=== PATIENT | male | born 1950 | race Caucasian/White ===

== ENCOUNTER 2017-01-16 21:32 | Inpatient (IN) | payer MEDICARE ==
[~2017-01-16 21:32] MED LIST: ALBUTEROL17 GM INH; AMBIEN10 MG PO; CODEINE PO; DUONEB; LEVAQUIN500 MG PO; LIDOCAINE; REQUIP1 MG PO; SPIRIVA18 MCG IH; TYLENOL W/CODEI1 TA PO; ZOFRAN4 MG PO
[2017-01-16] MEDS ORDERED: [UNRECOGNIZED DRUG - REMARK] (21:44)
[2017-01-16 22:52] LABS: BASO % 0.2 % (0-2); HCT-HEMATOCRIT 38.6 % (36.0-53.5); HGB-HEMOGLOBIN 11.8 gm/dl (13.5-17.0); LYMPH % 7.7 % (20-45); LYMPH ABSOLUTE COUNT 0.3 tho/cmm (0.8-4.5); MCH (MEAN CORPUSCULAR HGB) 31.1 pg (28.0-32.0); MCHC MEAN CORPUSCULAR HGB CONC 30.6 % (32.0-36.0); MCV (MEAN CELL VOLUME) 101.6 fl (82.0-96.0); MONO % 7.7 % (0-12); MONOCYTE ABSOLUTE COUNT 0.3 tho/cmm (0.0-1.2); NEUTROPHIL ABSOLUTE COUNT 3.4 tho/cmm (1.6-8.0); NEUTROPHIL-AUTOMATED 3.4 tho/cmm (1.6-8.0); NEUTROPHILS % 84.4 % (40-80); PLATELET COUNT 172 tho/cmm (150-450); RED CELL DISTRIBUTION WIDTH 14.9 % (12.4-16.4)
[2017-01-16 22:57] LABS: ALB/GLOB RATIO 0.8 (0.8-2.0); ALBUMIN 3.1 g/dl (3.5-5.0); ALCOHOL (ETOH) <10 mg/dl (<10); ALKALINE PHOSPHATASE 64 U/L (33-138); ALT/SGPT 22 U/L (12-78); AST/SGOT 25 U/L (10-40); BILIRUBIN,TOTAL 0.2 mg/dl (0.0-1.5); BLOOD UREA NITROGEN 12 mg/dl (6-24); CALCIUM 8.4 mg/dl (8.5-10.5); CHLORIDE 91 mmol/l (96-110); CREATININE 0.52 mg/dl (0.60-1.30); GLUCOSE 155 mg/dL (70-110); MAGNESIUM 1.9 mg/dl (1.3-2.6); POTASSIUM 4.1 mmol/L (3.7-5.1); SODIUM 138 mmol/L (135-145); eGFR VALUE FOR BLACK >90 mL/Min
[2017-01-16 23:01] LABS: ARTERIAL BLD GAS O2 SATURATION 99 % (95-98); ARTERIAL PO2 127 mmHg (70-100); BICARBONATE 41 mmol/L (21-28); BLOOD GAS BASE EXCESS 13 mM/L (-/+3); PH 7.35 Units (7.35-7.45)
[2017-01-16 23:01] LABS: ANION GAP 8 mmol/L (0-20); CARBON DIOXIDE-VENOUS 43 mmol/L (22-32); TSH-THYROID STIMULATING HORM. 0.28 uIU/ml (0.40-3.80)
[2017-01-16 23:08] LABS: ARTERIAL BLOOD GAS PCO2 77 mmHg (32-45)
[2017-01-16 23:09] LABS: ABG CO2 ARTERIAL 43 mmol/L (21-27)
[2017-01-17 04:07] LABS: ACETAMINOPHEN LEVEL 3.7 ug/ml (10-30); CKMB 3.1 ng/ml (<3.6)
[2017-01-17 04:09] LABS: ARTERIAL BLD GAS O2 SATURATION 93 % (95-98); BICARBONATE 40 mmol/L (21-28); BLOOD GAS BASE EXCESS 10 mM/L (-/+3); PH 7.27 Units (7.35-7.45)
[2017-01-17 04:10] LABS: ARTERIAL PO2 67 mmHg (70-100)
[2017-01-17 04:12] LABS: ARTERIAL BLOOD GAS PCO2 91 mmHg (32-45)
[2017-01-17 04:13] LABS: ABG CO2 ARTERIAL 43 mmol/L (21-27)
[2017-01-17 04:16] LABS: CREATINE PHOSPHOKINASE (CPK) 70 U/L (35-232); SALICYLATE <2.71 mg/dl (2.8-20)
[2017-01-17 05:04] LABS: BASO % 0.3 % (0-2); HCT-HEMATOCRIT 35.5 % (36.0-53.5); HGB-HEMOGLOBIN 10.8 gm/dl (13.5-17.0); LYMPH % 3.8 % (20-45); LYMPH ABSOLUTE COUNT 0.1 tho/cmm (0.8-4.5); MCH (MEAN CORPUSCULAR HGB) 30.5 pg (28.0-32.0); MCHC MEAN CORPUSCULAR HGB CONC 30.4 % (32.0-36.0); MCV (MEAN CELL VOLUME) 100.3 fl (82.0-96.0); MEAN PLATELET VOLUME 10.2 cmc (9.4-12.4); MONO % 1.9 % (0-12); MONOCYTE ABSOLUTE COUNT 0.1 tho/cmm (0.0-1.2); NEUTROPHIL ABSOLUTE COUNT 2.9 tho/cmm (1.6-8.0); NEUTROPHIL-AUTOMATED 2.9 tho/cmm (1.6-8.0); PLATELET COUNT 165 tho/cmm (150-450); RED BLOOD COUNT 3.54 mil/cmm (4.40-5.70); RED CELL DISTRIBUTION WIDTH 14.6 % (12.4-16.4); WHITE BLOOD COUNT 3.1 tho/cmm (4.0-10.0)
[2017-01-17 05:08] LABS: PROTHROMBIN TIME 11.4 SECONDS (9.0-13.6)
[2017-01-17 05:22] LABS: ALB/GLOB RATIO 0.9 (0.8-2.0); ALBUMIN 2.7 g/dl (3.5-5.0); ALKALINE PHOSPHATASE 52 U/L (33-138); ALT/SGPT 21 U/L (12-78); ANION GAP 8 mmol/L (0-20); AST/SGOT 21 U/L (10-40); BILIRUBIN,TOTAL 0.2 mg/dl (0.0-1.5); BLOOD UREA NITROGEN 10 mg/dl (6-24); CARBON DIOXIDE-VENOUS 40 mmol/L (22-32); CHLORIDE 95 mmol/l (96-110); CREATININE 0.33 mg/dl (0.60-1.30); GLUCOSE 148 mg/dL (70-110); POTASSIUM 4.5 mmol/L (3.7-5.1); SODIUM 138 mmol/L (135-145); eGFR VALUE FOR BLACK >90 mL/Min
[2017-01-17 05:36] LABS: ARTERIAL BLD GAS O2 SATURATION 98 % (95-98); BICARBONATE 40 mmol/L (21-28); BLOOD GAS BASE EXCESS 11 mM/L (-/+3); PH 7.26 Units (7.35-7.45)
[2017-01-17 05:38] LABS: ARTERIAL PO2 110 mmHg (70-100)
[2017-01-17 05:40] LABS: ABG CO2 ARTERIAL 43 mmol/L (21-27); ARTERIAL BLOOD GAS PCO2 93 mmHg (32-45)
[2017-01-17 05:53] LABS: PROCALCITONIN <0.05 ng/ml (0.05-0.09)
[2017-01-17 06:01] LABS: OSMOLALITY 287 mOsm/kg (275-295)
[2017-01-17 07:02] LABS: URINE BILIRUBIN NEGATIVE (NEG); URINE BLOOD MODERATE (NEG); URINE GLUCOSE (UA) NEGATIVE (NEG); URINE KETONE NEGATIVE (NEG); URINE LEUKOCYTE ESTERASE NEGATIVE (NEG); URINE NITRITE NEGATIVE (NEG); URINE PROTEIN SMALL (NEG)
[2017-01-17 07:06] LABS: URINE APPEARANCE CLEAR; URINE COLOR YELLOW
[2017-01-17 07:13] LABS: URINE BACTERIA 1+; URINE RBC 0-3 /[HPF] (0-5); URINE WBC 0 /[HPF] (0-5)
[2017-01-17 08:48] LABS: ARTERIAL BLD GAS O2 SATURATION 93 % (95-98); BICARBONATE 40 mmol/L (21-28); BLOOD GAS BASE EXCESS 12 mM/L (-/+3); PH 7.31 Units (7.35-7.45)
[2017-01-17 08:49] LABS: ARTERIAL PO2 68 mmHg (70-100)
[2017-01-17 08:51] LABS: ABG CO2 ARTERIAL 43 mmol/L (21-27); ARTERIAL BLOOD GAS PCO2 83 mmHg (32-45)
[2017-01-17 14:14] LABS: ARTERIAL BLD GAS O2 SATURATION 98 % (95-98); ARTERIAL BLOOD GAS PCO2 66 mmHg (32-45); ARTERIAL PO2 91 mmHg (70-100); BICARBONATE 39 mmol/L (21-28); BLOOD GAS BASE EXCESS 12 mM/L (-/+3); PH 7.39 Units (7.35-7.45)
[2017-01-17 14:15] LABS: ABG CO2 ARTERIAL 41 mmol/L (21-27)
[2017-01-18 04:24] LABS: ARTERIAL BLD GAS O2 SATURATION 95 % (95-98); ARTERIAL BLOOD GAS PCO2 67 mmHg (32-45); BICARBONATE 40 mmol/L (21-28); BLOOD GAS BASE EXCESS 13 mM/L (-/+3); PH 7.39 Units (7.35-7.45)
[2017-01-18 04:28] LABS: ARTERIAL PO2 70 mmHg (70-100)
[2017-01-18 04:30] LABS: ABG CO2 ARTERIAL 42 mmol/L (21-27)
[2017-01-18 15:11] LABS: ARTERIAL BLD GAS O2 SATURATION 95 % (95-98); ARTERIAL BLOOD GAS PCO2 56 mmHg (32-45); ARTERIAL PO2 67 mmHg (70-100); BICARBONATE 39 mmol/L (21-28); BLOOD GAS BASE EXCESS 13 mM/L (-/+3); PH 7.46 Units (7.35-7.45)
[2017-01-18 15:12] LABS: ABG CO2 ARTERIAL 41 mmol/L (21-27)
[2017-01-18 15:34] LABS: BASO % 0.2 % (0-2); HCT-HEMATOCRIT 30.3 % (36.0-53.5); HGB-HEMOGLOBIN 9.5 gm/dl (13.5-17.0); IMMATURE GRANULOCYTES ABSOLUTE 0.01 tho/cmm (0-0.03); IMMATURE GRANULOCYTES PERCENT 0.2 % (0-0.3); LYMPH % 4.5 % (20-45); LYMPH ABSOLUTE COUNT 0.3 tho/cmm (0.8-4.5); MCH (MEAN CORPUSCULAR HGB) 30.4 pg (28.0-32.0); MCHC MEAN CORPUSCULAR HGB CONC 31.4 % (32.0-36.0); MCV (MEAN CELL VOLUME) 96.8 fl (82.0-96.0); MEAN PLATELET VOLUME 9.7 cmc (9.4-12.4); MONO % 5.4 % (0-12); MONOCYTE ABSOLUTE COUNT 0.4 tho/cmm (0.0-1.2); NEUTROPHIL ABSOLUTE COUNT 5.8 tho/cmm (1.6-8.0); NEUTROPHIL-AUTOMATED 5.8 tho/cmm (1.6-8.0); NEUTROPHILS % 89.7 % (40-80); PLATELET COUNT 147 tho/cmm (150-450); RED BLOOD COUNT 3.13 mil/cmm (4.40-5.70); RED CELL DISTRIBUTION WIDTH 15.2 % (12.4-16.4)
[2017-01-18 15:49] LABS: WHITE BLOOD COUNT 6.5 tho/cmm (4.0-10.0)
[2017-01-18 15:52] LABS: ANION GAP 7 mmol/L (0-20); BLOOD UREA NITROGEN 12 mg/dl (6-24); CALCIUM 8.1 mg/dl (8.5-10.5); CARBON DIOXIDE-VENOUS 39 mmol/L (22-32); CHLORIDE 101 mmol/l (96-110); CREATININE 0.33 mg/dl (0.60-1.30); GLUCOSE 181 mg/dL (70-110); POTASSIUM 3.8 mmol/L (3.7-5.1); SODIUM 143 mmol/L (135-145); eGFR VALUE FOR BLACK >90 mL/Min
[2017-01-19 04:56] LABS: ARTERIAL BLD GAS O2 SATURATION 94 % (95-98); ARTERIAL PO2 70 mmHg (70-100); BICARBONATE 39 mmol/L (21-28); BLOOD GAS BASE EXCESS 12 mM/L (-/+3); PH 7.36 Units (7.35-7.45)
[2017-01-19 04:58] LABS: ARTERIAL BLOOD GAS PCO2 72 mmHg (32-45)
[2017-01-19 04:59] LABS: ABG CO2 ARTERIAL 41 mmol/L (21-27)
[2017-01-19 05:20] LABS: BASO % 0.1 % (0-2); HCT-HEMATOCRIT 31.4 % (36.0-53.5); HGB-HEMOGLOBIN 9.8 gm/dl (13.5-17.0); IMMATURE GRANULOCYTES ABSOLUTE 0.01 tho/cmm (0-0.03); IMMATURE GRANULOCYTES PERCENT 0.1 % (0-0.3); LYMPH % 3.6 % (20-45); LYMPH ABSOLUTE COUNT 0.3 tho/cmm (0.8-4.5); MCH (MEAN CORPUSCULAR HGB) 30.4 pg (28.0-32.0); MCHC MEAN CORPUSCULAR HGB CONC 31.2 % (32.0-36.0); MCV (MEAN CELL VOLUME) 97.5 fl (82.0-96.0); MEAN PLATELET VOLUME 10.3 cmc (9.4-12.4); MONO % 6.1 % (0-12); MONOCYTE ABSOLUTE COUNT 0.5 tho/cmm (0.0-1.2); NEUTROPHILS % 90.1 % (40-80); PLATELET COUNT 163 tho/cmm (150-450); RED BLOOD COUNT 3.22 mil/cmm (4.40-5.70); RED CELL DISTRIBUTION WIDTH 15.3 % (12.4-16.4); WHITE BLOOD COUNT 7.7 tho/cmm (4.0-10.0)
[2017-01-19 05:39] LABS: ANION GAP 6 mmol/L (0-20); BLOOD UREA NITROGEN 9 mg/dl (6-24); CARBON DIOXIDE-VENOUS 39 mmol/L (22-32); CHLORIDE 103 mmol/l (96-110); CREATININE 0.37 mg/dl (0.60-1.30); GLUCOSE 195 mg/dL (70-110); POTASSIUM 3.9 mmol/L (3.7-5.1); SODIUM 144 mmol/L (135-145); TRIGLYCERIDES 67 mg/dl (<149); eGFR VALUE FOR BLACK >90 mL/Min
[2017-01-19 15:55] LABS: ABG CO2 ARTERIAL 40 mmol/L (21-27); ARTERIAL BLD GAS O2 SATURATION 96 % (95-98); ARTERIAL BLOOD GAS PCO2 69 mmHg (32-45); ARTERIAL PO2 82 mmHg (70-100); BICARBONATE 38 mmol/L (21-28); BLOOD GAS BASE EXCESS 10 mM/L (-/+3); PH 7.36 Units (7.35-7.45)
[2017-01-20 04:57] LABS: BASO % 0.1 % (0-2); HCT-HEMATOCRIT 37.5 % (36.0-53.5); HGB-HEMOGLOBIN 11.7 gm/dl (13.5-17.0); IMMATURE GRANULOCYTES ABSOLUTE 0.01 tho/cmm (0-0.03); IMMATURE GRANULOCYTES PERCENT 0.1 % (0-0.3); LYMPH % 5.6 % (20-45); LYMPH ABSOLUTE COUNT 0.5 tho/cmm (0.8-4.5); MCH (MEAN CORPUSCULAR HGB) 30.4 pg (28.0-32.0); MCHC MEAN CORPUSCULAR HGB CONC 31.2 % (32.0-36.0); MCV (MEAN CELL VOLUME) 97.4 fl (82.0-96.0); MONO % 3.8 % (0-12); MONOCYTE ABSOLUTE COUNT 0.3 tho/cmm (0.0-1.2); NEUTROPHIL ABSOLUTE COUNT 7.8 tho/cmm (1.6-8.0); NEUTROPHIL-AUTOMATED 7.8 tho/cmm (1.6-8.0); NEUTROPHILS % 90.4 % (40-80); PLATELET COUNT 179 tho/cmm (150-450); RED BLOOD COUNT 3.85 mil/cmm (4.40-5.70); RED CELL DISTRIBUTION WIDTH 15.1 % (12.4-16.4); WHITE BLOOD COUNT 8.6 tho/cmm (4.0-10.0)
[2017-01-20 05:11] LABS: ANION GAP 7 mmol/L (0-20); BLOOD UREA NITROGEN 14 mg/dl (6-24); CALCIUM 8.1 mg/dl (8.5-10.5); CARBON DIOXIDE-VENOUS 38 mmol/L (22-32); CHLORIDE 103 mmol/l (96-110); CREATININE 0.43 mg/dl (0.60-1.30); GLUCOSE 196 mg/dL (70-110); POTASSIUM 4.2 mmol/L (3.7-5.1); SODIUM 144 mmol/L (135-145); eGFR VALUE FOR BLACK >90 mL/Min
[2017-01-20 05:30] LABS: ARTERIAL BLD GAS O2 SATURATION 95 % (95-98); ARTERIAL BLOOD GAS PCO2 60 mmHg (32-45); BICARBONATE 38 mmol/L (21-28); BLOOD GAS BASE EXCESS 12 mM/L (-/+3); PH 7.42 Units (7.35-7.45)
[2017-01-20 05:31] LABS: ABG CO2 ARTERIAL 40 mmol/L (21-27); ARTERIAL PO2 72 mmHg (70-100)
[2017-01-20 13:24] LABS: ARTERIAL BLD GAS O2 SATURATION 95 % (95-98); ARTERIAL BLOOD GAS PCO2 61 mmHg (32-45); ARTERIAL PO2 72 mmHg (70-100); BICARBONATE 39 mmol/L (21-28); BLOOD GAS BASE EXCESS 12 mM/L (-/+3); PH 7.42 Units (7.35-7.45)
[2017-01-20 13:25] LABS: ABG CO2 ARTERIAL 41 mmol/L (21-27)
[2017-01-21 01:55] LABS: BLOOD UREA NITROGEN 11 mg/dl (6-24); CALCIUM 8.4 mg/dl (8.5-10.5); CARBON DIOXIDE-VENOUS 38 mmol/L (22-32); CHLORIDE 101 mmol/l (96-110); CREATININE 0.38 mg/dl (0.60-1.30); GLUCOSE 98 mg/dL (70-110); PHOSPHOROUS 2.1 mg/dl (2.5-4.9); SODIUM 141 mmol/L (135-145); eGFR VALUE FOR BLACK >90 mL/Min
[2017-01-21 02:04] LABS: ANION GAP 6 mmol/L (0-20); POTASSIUM 3.8 mmol/L (3.7-5.1)
[2017-01-21 05:02] LABS: BASO % 0.1 % (0-2); HCT-HEMATOCRIT 38.1 % (36.0-53.5); HGB-HEMOGLOBIN 12.2 gm/dl (13.5-17.0); IMMATURE GRANULOCYTES ABSOLUTE 0.01 tho/cmm (0-0.03); IMMATURE GRANULOCYTES PERCENT 0.1 % (0-0.3); LYMPH % 6.2 % (20-45); LYMPH ABSOLUTE COUNT 0.6 tho/cmm (0.8-4.5); MCH (MEAN CORPUSCULAR HGB) 30.2 pg (28.0-32.0); MCV (MEAN CELL VOLUME) 94.3 fl (82.0-96.0); MEAN PLATELET VOLUME 10.4 cmc (9.4-12.4); MONO % 7.8 % (0-12); MONOCYTE ABSOLUTE COUNT 0.7 tho/cmm (0.0-1.2); NEUTROPHIL ABSOLUTE COUNT 7.8 tho/cmm (1.6-8.0); NEUTROPHIL-AUTOMATED 7.8 tho/cmm (1.6-8.0); NEUTROPHILS % 85.8 % (40-80); PLATELET COUNT 212 tho/cmm (150-450); RED BLOOD COUNT 4.04 mil/cmm (4.40-5.70); RED CELL DISTRIBUTION WIDTH 14.5 % (12.4-16.4)
[2017-01-23] MEDS ORDERED: SPIRIVA18 MC1 INH (10:34)
[2017-01-23] MEDS ORDERED: LEVAQUIN750 M1 PO (10:34)
[2017-01-23] MEDS ORDERED: DULERA 200 MCG/13 G1 INH (10:38)
[2017-01-23] MEDS ORDERED: PROVENTIL HFA6.7 G1 INH (10:38)
[2017-01-23] MEDS ORDERED: NICODERM CQ1 EAC2 TD (10:41)
[2017-01-23] MEDS ORDERED: SENOKOT-S TABL1 EACH PO (10:42)
[2017-01-23] MEDS ORDERED: PREDNISONE10 M1 PO (10:44)
[2017-01-23] MEDS ORDERED: ATIVAN0.5 M1 PO (10:45)
== END 2017-01-23 12:31 | DRG 871 ==
LOC: EDMED 21:32 → EMR2 23:40 → CCU 23:57 → PCUB 01-21 17:24
PROVIDERS: Emergency Medicine; Hospitalist; Internal Medicine; Internal Medicine Critical Care Medicine; Internal Medicine Pulmonary Disease; Physician Assistant Medical; Registered Nurse; Specialist; ADMIT Hospitalist
PROC: 5A1945Z Respiratory Ventilation, 24-96 Consecutive Hours (ICD-10-PCS; principal; 2017-01-17)
PROC: 02HV33Z Insertion of Infusion Device into Superior Vena Cava, Percutaneous Approach (ICD-10-PCS; 2017-01-17)
PROC: 0BH17EZ Insertion of Endotracheal Airway into Trachea, Via Natural or Artificial Opening (ICD-10-PCS; 2017-01-17)
DX: A41.9 Sepsis, unspecified organism (principal); J96.21 Acute and chronic respiratory failure with hypoxia; E44.0 Moderate protein-calorie malnutrition; J44.1 Chronic obstructive pulmonary disease with (acute) exacerbation; Z99.81 Dependence on supplemental oxygen; K56.7 Ileus, unspecified; Z68.1 Body mass index [BMI] 19.9 or less, adult; J11.1 Influenza due to unidentified influenza virus with other respiratory manifestations; G47.33 Obstructive sleep apnea (adult) (pediatric); F41.9 Anxiety disorder, unspecified; Z85.9 Personal history of malignant neoplasm, unspecified; I25.10 Atherosclerotic heart disease of native coronary artery without angina pectoris; M79.7 Fibromyalgia; F43.10 Post-traumatic stress disorder, unspecified; G25.81 Restless legs syndrome; E78.5 Hyperlipidemia, unspecified; I10 Essential (primary) hypertension; F17.210 Nicotine dependence, cigarettes, uncomplicated; M19.90 Unspecified osteoarthritis, unspecified site; Z91.19 Patient's noncompliance with other medical treatment and regimen; F19.10 Other psychoactive substance abuse, uncomplicated; D64.9 Anemia, unspecified; Z66 Do not resuscitate; R73.9 Hyperglycemia, unspecified
CPT/HCPCS: C1751; C9113; G0480; J1650; J1815; J1956; J2060; J2250; J2270; J2310; J2405; J2543; J2704; J2930; J3370; J7030; J7040; J7512; P9045; Q9967